=== PATIENT | male | born 1945 | race African-American/Black ===

== ENCOUNTER → 2017-08-20 | Outpatient (CLI) | payer OTHER ==
--- NOTE | 2017-08-20 12:53 | RAD ---
APPROVED REPORT Test Type: Exercise Stress Nurse/Tech: Bea Askew R.N. Test Indications: 1st degree AV block Cardiac History: HTN, high cholesterol Medications: SEE EMR Medical History: SEE EMR Resting ECG: SR 1st degree AV block Resting Heart Rate: 70 bpm Resting Blood Pressure: 149/77mmHg Pretest Chest Pain: No chest pain Nurse/Tech Notes S1S2, lungs CTA, denied chest pain and SOA. Denied dizziness. Consent: The procedure was explained to the patient in lay terms. Informed consent was witnessed. Dlae eout was entered into [employer]. History and Stress Test performed by Bea Askew R.N. Stress Symptoms Slightly SOA. POST EXERCISE Reason for Termination: Reached target heart rate Target HR: 125 Max HR: 130 bpm 104% of Maximum Predicted HR: bpm Exercise duration: 5:00 min:sec, 2 Stage Exercise capacity: 7.0METs Max Blood Pressure: 149/77mmHg Blood Pressure response to exercise: Normal blood pressure response during stress. Heart Rate response to exercise: Normal Chest Pain: No. Arrhythmia: No. ST Change: No. INTERPRETATION Stress EKG Conclusion: No acute changes were noted. Imaging Protocol IMAGE PROTOCOL: Rest Tc-99m/stress Tc-99m 1 day Rest: Stress: Viability: Radiopharm.Tc99m [id number] Sestamibi Dose11.8mCi 32mCi Img Date 08/20/2017 08/20/2017 Inj-Img [id number]. 60min. Rest Admin Site:IV - Left HandAdministrator:ANITA Smith, ARRT (R)(N) Stress Admin Site: IV - Left HandAdministrator: Kenan Romero, RT (R)(N) STRESS DATA End Diast. Vol.96.0mlAv. Heart Rate79.0bpm End Syst. Vol.28.0mlCO Index BSA0.0L/min Myocardial Nsjj115.0gEject. Soczwbbw28.0% Stress Rates Pk. Fill Rate2.78EDV/secLVtime Pk. Fill 101.57msec Pk. Empty Rate4.39ESV/secLVtime Pk. Phjqa870.40msec 1/3 Pk. Fill1.87EDV/sec Stress Scores Regional WT1.00Summed WT11.00 Regional WM0.00Summed WM0.00 The rest and stress images show normal perfusion, normal contraction and thickening. LV Perfusion 1 TCD/TID: Yes LV Perf. Quant 17 Seg. SSS0.00 17 Seg. SRS0.00 17 Seg. SDS0.00 Stress Defect Extent (% LAD)0.00Rest Defect Extent (% LAD)0.00Rev. Defect Extent (% LAD)0.00 Stress Defect Extent (% LCX) 0.00Rest Defect Extent (% LCX)0.00Rev. Defect Extent (% LCX)0.00 Stress Defect Extent (% RCA)0.00Rest Defect Extent (% RCA)0.00Rev. Defect Extent (% RCA)0.00 Stress Defect Extent (% BARTOLO)0.00Rest Defect Extent (% BARTOLO)0.00Rev. Defect Extent (% BARTOLO)0.00 Other Information Quality:Average Risk Assessment: Moderate Risk Conclusion 1. No evidence of stress induced EKG changes. 2. Normal perfusion at stress/rest. 3. Mild transient ischemic dilation, suggestive but not confirmatory for balanced ischemia, correlate with clinical findings. 4. Normal EF at > 70% 5. Low to moderate risk study.
== END | disposition home or self-care (01) ==
LOC: NM 09:06
PROVIDERS: ATTEND Internal Medicine
DX: I44.0 Atrioventricular block, first degree (principal); I10 Essential (primary) hypertension; E78.00 Pure hypercholesterolemia, unspecified; I49.5 Sick sinus syndrome; Z59.0 Homelessness
CPT/HCPCS: 78452; 93017; 96374; 96376; A9500

== ENCOUNTER 2018-01-07 16:37 | Emergency (ER) | payer MEDICARE, OTHER ==
[2018-01-07] MEDS: BUPIVACAINE MPF 0.25% 10 ML VIAL. IJ (17:08)
[2018-01-07] MEDS: LIDOCAINE 2% 20 ML VIAL. IJ (17:08)
[2018-01-07 17:45] LABS: ADD MAN DIFF? NO
[2018-01-07 17:48] LABS: BASO # 0.1 x10^3/uL (0.0-0.2); BASO % 1 % (0-3); EOS # 0.1 x10^3/uL (0.0-0.7); EOS % 1 % (0-3); HEMOGLOBIN 13.3 g/dL (13.0-17.5); LYMPH # 1.8 x10^3/uL (1.0-4.8); LYMPH % 22 % (24-48); MEAN CORPUSCULAR HEMOGLOBIN 32 pg (25-35); MEAN CORPUSCULAR HGB CONC 34 g/dL (31-37); MEAN CORPUSCULAR VOLUME 94 fL (79-100); MONO # 0.6 x10^3/uL (0.0-1.1); MONO % 7 % (0-9); NEUT # 5.6 x10^3uL (1.8-7.7); NEUT % 69 % (31-73); PLATELET COUNT 196 x10^3/uL (140-400); RED BLOOD COUNT 4.17 x10^6/uL (4.30-5.70); WHITE BLOOD COUNT 8.1 x10^3/uL (4.0-11.0)
[2018-01-07] MEDS: ONDANSETRON PF 4 MG/2 ML VIAL. IV (17:55)
[2018-01-07] MEDS: fentaNYL PF VIAL 100 MCG/2 ML VIAL IV (17:55)
[2018-01-07 17:57] LABS: PARTIAL THROMBOPLASTIN TIME 30 SEC (24-38); PROTHROMBIN TIME PATIENT 12.7 SEC (11.7-14.0)
== END 2018-01-07 17:55 | disposition short-term general hospital (02) ==
LOC: ER 16:37
DX: S62.601B Fracture of unspecified phalanx of left index finger, initial encounter for open fracture (principal); S62.603B Fracture of unspecified phalanx of left middle finger, initial encounter for open fracture; S67.22XA Crushing injury of left hand, initial encounter; I10 Essential (primary) hypertension; E78.00 Pure hypercholesterolemia, unspecified; Z88.0 Allergy status to penicillin; W20.8XXA Other cause of strike by thrown, projected or falling object, initial encounter; Y93.89 Activity, other specified; Y92.89 Other specified places as the place of occurrence of the external cause; Y99.8 Other external cause status
CPT/HCPCS: 36415; 64450; 73130; 85025; 85610; 85730; 96365; 96375; 99285-25; J0690; J2405; J3010; J3490